=== PATIENT | male | born 1955 | race Caucasian/White ===

== ENCOUNTER 2021-06-19 09:18 | Outpatient (CLI) | payer OTHER, SELFPAY ==
[2021-06-19 09:52] LABS: Basophils Percent Auto 0.4 % (0.2-1.2); Eosinophils Percent Auto 0.4 % (0-4.4); Hematocrit 46.3 % (42.0-52.0); Hemoglobin 16.4 g/dL (14.0-18.0); Immature Granulocyte Absolute 0.02 K/mm3 (0.00-0.031); Immature Granulocyte Percent A 0.2 % (0-0.5); Lymphocytes Absolute Auto 1.66 K/mm3 (0.9-3.2); Lymphocytes Percent Auto 18.5 % (18.3-44.2); Mean Corpuscular HGB Conc 35.4 g/dl (32-36); Mean Corpuscular Volume 84.8 fl (80-100); Mean Platelet Volume 10.8 fl (7.4-10.4); Monocytes Absolute Auto 1.4 K/mm3 (0.1-0.6); Neutrophils Absolute Auto 5.9 K/mm3 (1.3-6.7); Neutrophils Percent Auto 65.5 % (45.5-73.1); Platelet Count Result 287 k/mm3 (150-375); Red Blood Count 5.46 M/mm3 (4.6-6.20); Red Cell Distribution Width 13.4 % (11.5-14.5)
--- NOTE | 2021-06-19 10:12 | ECG_ITS ---
Measurements Intervals [place] Rate: 97 P: 31 FL: 151 QRS: -29 QRSD: 88 T: 68 QT: 330 QTc: 420 Interpretive Statements SINUS RHYTHM DELAYED PRECORDIAL R/S TRANSITION LEFT VENTRICULAR HYPERTROPHY AND ST-T CHANGE MINIMAL Q WAVES- HIGH LATERAL LEADS BORDERLINE ECG Electronically Signed On 06-19-2021 10:51:53 CDT by Polo Bah D.O.
[2021-06-19 10:14] LABS: Alanine Aminotransferase 23 U/L (4-50); Alkaline Phosphatase 72 U/L (38-126); Anion Gap 14 mmol/L (8-16); Aspartate Amino Transferase 27 U/L (17-59); Bilirubin,Total 1.8 mg/dL (0.2-1.3); Blood Urea Nitrogen 39 mg/dL (9-20); Calcium 10.2 mg/dL (8.4-10.2); Carbon Dioxide 22 mmol/L (22-30); Chloride 103 mmol/L (98-107); Estimated Glomerular Filt Rate 56; Glucose 139 mg/dL (65-110); Magnesium 2.1 mg/dL (1.6-2.3); Potassium 3.8 mmol/L (3.4-5.0); Sodium 139 mmol/L (137-145)
== END 2021-06-19 09:19 | disposition home or self-care (01) ==
PROVIDERS: PCP Family Medicine Adolescent Medicine; Visit Provider Surgery
DX: K40.90 Unilateral inguinal hernia, without obstruction or gangrene, not specified as recurrent (principal)
CPT/HCPCS: 36415; 80053; 83735; 85025; 93005

== ENCOUNTER 2021-06-20 02:01 | Day surgery (SDC) | payer OTHER, SELFPAY ==
[2021-06-19 15:41] VITALS: BMI 34.2
--- NOTE | 2021-06-20 07:06 | P.PNAN_ITS ---
Anes - Initial Pre Proc Eval Procedure: Operation Date: 06/20/21 15:00 Proposed Procedures p Open Right Inguinal Hernia Repair with Mesh - Igor Unger MD Date/Time: 06/20/21 07:06 Surgeon: Igor Unger MD Pre Op Diagnosis: right inguinal hernia Patient Data Age: 66 Gender: M Height: 1.7 m Weight: 99 kg Allergies Allergy/AdvReac Type Severity Reaction Status Date / Time No Known Allergies Allergy Verified 06/20/21 13:18 Home Medications Medication Instructions Recorded Confirmed Type cholecalciferol (vitamin D3) 50 50 mcg PO DAILY 06/19/21 06/20/21 History mcg (2,000 unit) capsule krill oil 500 mg capsule 500 mg PO DAILY 06/19/21 06/20/21 History lisinopril 20 mg tablet 20 mg PO QAM 06/19/21 06/20/21 History bcwjbfeu-bdiesbdk-gkjrx acid 400 1 tablet PO DAILY 06/19/21 06/20/21 History mcg-vit K 20 mcg-lycop 300 mcg tablet zinc acetate 25 mg (zinc) capsule 25 mg PO DAILY 06/19/21 06/20/21 History Patient hx anesthesia problems: none Family hx anesthesia problems: none PMFSH Past Medical History Medical History (Updated 06/20/21 @ 07:06 by Efren Ramires DO) HTN (hypertension) NIMESH (obstructive sleep apnea) Family History Family History (Updated 06/19/21 @ 08:32 by Mary Kelsey) Father Kidney carcinoma TIA (transient ischemic attack) Mother Alzheimer disease Other Hypertension Social History Social History (Updated 06/19/21 @ 08:42 by Mary Kelsey) Smoking status: Never smoker Alcohol intake: never Substance use: never Living arrangements: with family Additional living arrangements comments: 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 Questions were solicited and answers provided to the satisfaction of the patient/family/POA.
[2021-06-20] MEDS: ACETAMINOPHEN 500 MG TABLET 1000 MG PO (13:53)
[2021-06-20] MEDS: KETOROLAC 15 MG/ML VIAL (*BKC) IV PUSH (13:54)
[2021-06-20] MEDS: LACTATED RINGERS 1,000 ML 30 ML IV CONT ×2 (13:57→19:05)
[2021-06-20 14:20] VITALS: BP 124/85; PULSE 96; RESP 18; TEMP 36.8; O2SAT 95
--- NOTE | 2021-06-20 15:14 | P.HPUP_ITS ---
History and Physical Update Update Date/Time: 06/20/21 15:14 History and Physical has been reviewed, including an updated exam of the patient. There are changes in the patient's condition. Patient does still have pain in the right groin and feels as if it has enlarged again since I reduced it in the office yesterday. Risks, benefits, and alternatives of an open inguinal hernia repair with mesh including possible injury to surrounding organs such as the peripheral nerves a nd the bowel have been discussed and questions answered. Patient agrees to proceed with procedure.
--- NOTE | 2021-06-20 15:16 | SUR.PREOP ---
patient updated on surgery delay, approx start time [id number]
--- NOTE | 2021-06-20 15:27 | SUR.PREOP ---
verified with Dr. Unger that pt is to receive Ancef 2gm for intraop antibiotic
[2021-06-20] MEDS: ceFAZolin 2 GM/D5W 50 ML 2 GM/50 ML BAG IVPB (15:29)
--- NOTE | 2021-06-20 17:48 | SUR.OPER ---
Dr. Saldana to OR at [address] Unger's request. 16 Fr Coude Catheter inserted by Dr. Saldana at 1730. Urine amount, color, and characteristics unknown as it was spilled and absorbed on surgical drapes. Catheter hooked to 2000mL husain bag for future I&O recording and documentation.
--- NOTE | 2021-06-20 18:16 | WPDURCON ---
Assessment and Plan Assessment and plan (1) Bladder injury, open: Code(s): S37.20XA - Unspecified injury of bladder, initial encounter; S31.000A - Unspecified open wound of lower back and pelvis without penetration into retroperitoneum, initial encounter Status: Acute Urology Consult Note HPI Date Seen: 06/20/21 Requesting Physician: Igor Unger MD Primary Care Provider: Omar Carney MD Consult Narrative Narrative: Messi Castillo is a 66 year old male who is unknown to our practice now assessed the season intraoperative consultation by Dr. Unger after scope herniation of his bladder into a large right inguinal hernia with small cystotomy at the dome during the course of herniorrhaphy. To our knowledge, patient has no prior significant urological history and is not on any urologically active medications. For the specifics of operative procedure please see separate dictated operative note. Review of Systems Review of Systems: ROS unobtainable: Yes unobtainable due to endotracheal tube and unobtainable due to medical condition PMFSH Past Medical History Medical History (Updated 06/20/21 @ 18:20 by Arsalan Saldana MD) HTN (hypertension) NIMESH (obstructive sleep apnea) Family History Family History (Updated 06/19/21 @ 08:32 by Mary Kelsey) Father Kidney carcinoma TIA (transient ischemic attack) Mother Alzheimer disease Other Hypertension Social History Social History (Updated 06/19/21 @ 08:42 by Mary Kelsey) Smoking status: Never smoker Alcohol intake: never Substance use: never Living arrangements: with family Additional living arrangements comments: 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 Spiritual care concerns: No Meds Home Medications and Allergies Home Medications Medication Instructions Recorded Confirmed Type cholecalciferol (vitamin D3) 50 50 mcg PO DAILY 06/19/21 06/20/21 History mcg (2,000 unit) capsule krill oil 500 mg capsule 500 mg PO DAILY 06/19/21 06/20/21 History lisinopril 20 mg tablet 20 mg PO QAM 06/19/21 06/20/21 History bswwcaaf-cfettsho-pqfsd acid 400 1 tablet PO DAILY 06/19/21 06/20/21 History mcg-vit K 20 mcg-lycop 300 mcg tablet zinc acetate 25 mg (zinc) capsule 25 mg PO DAILY 06/19/21 06/20/21 History Allergies Allergy/AdvReac Type Severity Reaction Status Date / Time No Known Allergies Allergy Verified 06/20/21 13:18 Vital Signs Vital Signs - 24 hr 06/20/21 14:20 Temperature 98.3 F Pulse Rate 96 Respiratory Rate 18 Blood Pressure 124/85 Pulse Oximetry 95
--- NOTE | 2021-06-20 18:20 | W.PM.PROC2 ---
Procedure Note - Detailed Date of Procedure 06/20/21 Pre-op Diagnosis Right inguinal hernia with bladder dome Post-op Diagnosis same Procedure Performed Repair bladder injury Surgeon Arsalan Saldana MD Anesthesia general Description of Procedure The during the course of the repair of a large right inguinal hernia Dr. Unger encountered herniation of the bladder dome closely adherent to the hernia sac. During the course of dissection there was a small cystotomy that was incurred in the bladder dome, prompting urological consultation. Inspection revealed this small, 1-2 cm cystotomy to be in the dome and not involving the trigone. Working together we carefully dissected the hernia sac from the remainder of the dome and posterior wall of the bladder. I then closed the cystotomy with a layer of running 3-0 Vicryl in the mucosa and muscularis bladder followed by an imbricating running 3-0 Vicryl. The bladder was filled and there was stone to be no leak at this point. The bladder was then replaced through the inguinal ring back into the pelvis. Remainder of this dictation will be undertaken by Dr. Unger. My intention will be to leave an indwelling catheter to drainage for 1 week followed by a cystogram. Estimated Blood Loss 5 Drains Yes (18F Mai catheter) Packing No Pathology none sent Complications No immediate complications Condition stable Disposition PACU
[2021-06-20 19:05] VITALS: BP 129/76; PULSE 73; RESP 14; TEMP 36.2; O2SAT 97
[2021-06-20 19:35] VITALS: BP 127/74; PULSE 68; RESP 14
[2021-06-20 19:57] VITALS: BP 140/76; PULSE 69; RESP 14
--- NOTE | 2021-06-20 23:39 | W.PM.PROC2 ---
Procedure Note - Detailed Date of Procedure 06/20/21 Pre-op Diagnosis right inguinal hernia with suspected incarceration Post-op Diagnosis other (1. right direct and indirect inguinal hernia with incarceration of a portion of urinary bladder.) Procedure Performed 1. Open repair of large incarcerated right inguinal hernia with mesh 2. repair of a small hole in the right upper lateral portion of the urinary bladder (iatrogenic ): By Dr. Miguel Saldana Surgeon Igor Unger MD Information Developer WIN Schumacher, OR 1st assist Anesthesia general ( G IV S) and local ( with mixture of 1% xylocaine leading plain and 0.5% Marcaine plain) Indications The patient was seen in the office yesterday and required reduction of fairly large right inguinal hernia due to nausea and significant pain. Because of this labs were done which showed fairly normal CBC electrolytes. EKG was okay therefore we moved quickly to proceed to elective surgical intervention due to suspicion of incarceration was reduced in the office and now some improvement but in order to avoid future urgent or emergent surgery was felt that he would benefit by elective repair. Findings a very large indirect inguinal hernia with a lot of associated thickened fat and some edema in the tissues of the hernia sac and cord structures. Also as I further explored and began excising the large hernia sac I discovered a significant size element of the lateral upper portion of the urinary bladder herniating through the internal ring into the Right inguinal canal. Description of Procedure The patient was placed in the supine position on the operating room table. After induction of adequate General (GIVS) anesthesia by [facility] staff, we carefully prepped the entire abdomen and scrotum with chlorhexidine. Betadine was used on the penis itself. One sterile towel was placed underneath the scrotum. Four towels were placed around the right lower quadrant. Following this, a time-out was performed with the surgical team and the patient's surgical procedure and site was confirmed. We then carefully outlined a curvilinear incision in the right groin area and a curvilinear incision was made after introducing a mixture of local anesthetic, using 0.5% Marcaine with epinephrine and 1% Xylocaine plain as both an ilioinguinal nerve block and at the incision site with a 25 gauge needle. Following this, I carefully made the incision, and carried it down through the subcutaneous tissue. Leif's fascia was incised and then we identified the external oblique aponeurosis and the external ring. Following this, the same mixture of local anesthetic was infiltrated underneath the external oblique aponeurosis and this was split in the direction of it's fibers with a #15 blade initially and then using Metzenbaum scissors. I then opened the external oblique through the external ring and incised this somewhat posteriorly and superiorly. There was a lot of lipomatous cord tissue and therefore the ilioinguinal nerve seemed to be buried in this and was never really seen well. I then surrounded these structures at the level of pubic tubercle and placed a Bong drain around them. I then carefully dissected the hernia sac up and off of the cord tissues, and brought it up and out of the incision. Hernia sac and surrounding fatty tissue were very thick and significantly large. We carefully dissected the layers and cremasteric tissues off the hernia sac and then eventually opened the hernia sac. Medial to the hernia sac there was significant amount tissue which I felt most likely was a large lipoma of the cord. However having opened the sac and having a finger in the sac I began dissecting this tissue and as we were doing that trying to reduce the volume of the lipomatous tissue surrounding the cord I found myself cutting into appeared to be a small hole in the urinary bladder as there was immediately clear fluid came out. The
== END 2021-06-20 20:05 | disposition home or self-care (01) ==
PROVIDERS: PCP Family Medicine Adolescent Medicine; Visit Provider Surgery
PROC: (CPT 49507; principal; 2021-06-20 15:00)
DX: K40.30 Unilateral inguinal hernia, with obstruction, without gangrene, not specified as recurrent (principal); N99.72 Accidental puncture and laceration of a genitourinary system organ or structure during other procedure; D17.6 Benign lipomatous neoplasm of spermatic cord; I10 Essential (primary) hypertension; G47.33 Obstructive sleep apnea (adult) (pediatric); E66.9 Obesity, unspecified; Z68.34 Body mass index [BMI] 34.0-34.9, adult
CPT/HCPCS: 49507; 51860; 88302; A9270; C1781; J0690; J1100; J1885; J2250; J2405; J2704; J3010; J7120

== ENCOUNTER 2021-06-26 07:48 | Outpatient (CLI) | payer OTHER, SELFPAY ==
--- NOTE | ~2021-06-26 | XR_ITS ---
EXAMINATION: CYSTOGRAM DATE: 06/26/2021 08:39 INDICATION: Status post repair of magic bladder injury following right inguinal hernia repair. 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 There was retrograde administration of Omnipaque 350 mixed with saline contrast into patient's existing husain catheter. Fluoroscopic darrin ges of the pelvis were obtained. A post-void image was also performed. Fluoroscopy exposure time was 1.8 minutes. A total of 1 overhead radiographs and 25 fluoroscopic images were recorded. DAP was 19.9 26 mGycm^2 FINDINGS: Upon filling of the bladder a contained outpouching of contrast with smooth peripheral margins and so me striated filling defects which extends superolaterally from the right dome of the bladder. This ap pears significantly larger in caliber and arises more anteriorly than would be expected for the right ureter. The outpouching however appears to collapse and decrease in size upon emptying of the bladde r which along with the appearance would argue against extraluminal bladder leak and this may represen t local architectural distortion of the bladder wall related to the prior repair. There is minimal re flux of contrast into the distalmost left ureter. The tip of the Husain catheter is superimposed over small amount of contrast refluxing into the distal left ureter potentially extending into the left ur eteral orifice. Multiple phleboliths in the pelvis. IMPRESSION: Abnormal outpouching of contrast at the right side of the dome of the bladder. This may represent con trast within a portion of the bladder distorted by changes of the prior repair as the contours remain relatively well-defined and smooth and with decrease in size of the outpouching observed with emptyi ng of the bladder, both findings arguing against extraluminal extravasation. Reviewed, dictated and finalized at location A. IMPRESSION: Abnormal outpouching of contrast at the right side of the dome of the bladder. This may represent contrast within a portion of the bladder distorted by change s of the prior repair as the contours remain relatively well-defined and smooth and with decrease in size of the outpouching observed with emptying of the anil dder, both findings arguing against extraluminal extravasation.
== END 2021-06-26 07:49 | disposition home or self-care (01) ==
PROVIDERS: PCP Family Medicine Adolescent Medicine; Visit Provider Urology
DX: K40.30 Unilateral inguinal hernia, with obstruction, without gangrene, not specified as recurrent (principal)
CPT/HCPCS: 51600; 74430; Q9967

== ENCOUNTER 2024-06-29 07:04 | Outpatient (CLI) | payer MEDICARE, SELFPAY ==
[2024-06-29 09:01] LABS: Alanine Aminotransferase 25 U/L (6-50); Albumin Level 4.7 g/dL (3.5-5.1); Alkaline Phosphatase 58 U/L (38-126); Anion Gap 11 mmol/L (4-12); Aspartate Amino Transferase 28 U/L (17-59); Bilirubin,Total 1.3 mg/dL (0.2-1.3); Blood Urea Nitrogen 23 mg/dL (9-20); Calcium 9.5 mg/dL (8.4-10.2); Carbon Dioxide 24 mmol/L (22-30); Chloride 102 mmol/L (98-107); Estimated Glomerular Filt Rate > 60; Glucose 92 mg/dL (65-110); Potassium 4.1 mmol/L (3.4-5.0); Sodium 137 mmol/L (137-145)
[2024-06-29 09:25] LABS: Prostate Specific Antigen 1.1 ng/mL (< OR = 4.0)
== END 2024-06-29 07:05 | disposition home or self-care (01) ==
LOC: ANHLAB 07:17
PROVIDERS: PCP Family Medicine Adolescent Medicine; Visit Provider Family Medicine Adolescent Medicine
DX: I10 Essential (primary) hypertension (principal); E78.00 Pure hypercholesterolemia, unspecified; Z12.5 Encounter for screening for malignant neoplasm of prostate
CPT/HCPCS: 36415; 80053; 84153; G0103

== ENCOUNTER 2025-08-28 07:07 | Outpatient (CLI) | payer MEDICARE, SELFPAY ==
[2025-08-28 08:39] LABS: Alanine Aminotransferase 24 U/L (6-50); Albumin Level 4.5 g/dL (3.5-5.1); Alkaline Phosphatase 59 U/L (38-126); Anion Gap 8 mmol/L (4-12); Aspartate Amino Transferase 35 U/L (17-59); Bilirubin,Total 1.1 mg/dL (0.2-1.3); Blood Urea Nitrogen 20 mg/dL (9-20); Calcium 9.5 mg/dL (8.4-10.2); Carbon Dioxide 24 mmol/L (22-30); Chloride 105 mmol/L (98-107); Cholesterol 214 mg/dL (0-200); Estimated Glomerular Filt Rate > 60; Glucose 98 mg/dL (65-110); HDL Direct 50 mg/dL; Potassium 4.3 mmol/L (3.4-5.0); Sodium 137 mmol/L (137-145); Total Protein 7.2 g/dL (6.3-8.2); Triglycerides 109 mg/dL (<150)
[2025-08-28 09:15] LABS: Prostate Specific Antigen 1.0 ng/mL (< OR = 4.0)
== END 2025-08-28 07:08 | disposition home or self-care (01) ==
LOC: ANHLAB 07:10
PROVIDERS: PCP Family Medicine Adolescent Medicine; Visit Provider Family Medicine Adolescent Medicine
DX: E78.00 Pure hypercholesterolemia, unspecified (principal); I10 Essential (primary) hypertension; Z12.5 Encounter for screening for malignant neoplasm of prostate
CPT/HCPCS: 36415; 80053; 80061; 84153; G0103